=== PATIENT | male | born 1940 | race Caucasian/White ===

== ENCOUNTER 2021-07-20 19:08 | Emergency (ER) | payer MEDICARE ==
[~2021-07-20 19:08] MED LIST: CATAPRES 0.1MG0.1 MG PO; NORCO 5-325 TA1 EACH PO; OMNICEF 300 MG300 MG PO
[2021-07-20 21:29] LABS: HEMOGLOBIN 11.5 gm/dl (14.0-17.5); RED BLOOD COUNT 3.82 M/UL (4.20-5.50); WHITE BLOOD COUNT 8.7 K/UL (4.5-11.0)
[2021-07-20 22:00] LABS: BUN/CREATININE RATIO 27 (0-10)
== END 2021-07-21 01:00 | disposition home or self-care (01) ==
LOC: ER1 19:08
PROVIDERS: Physician Assistant
DX: E87.5 Hyperkalemia (principal); I10 Essential (primary) hypertension; I25.2 Old myocardial infarction; E78.5 Hyperlipidemia, unspecified; Z95.1 Presence of aortocoronary bypass graft; Z88.5 Allergy status to narcotic agent; Z79.899 Other long term (current) drug therapy
CPT/HCPCS: 71045; 80053; 81001; 82436; 82550; 82553; 83690; 83735; 83874; 83880; 84133; 84300; 84439; 84443; 84484; 85025; 93005; 99285